=== PATIENT | female | born 1990 ===

== ENCOUNTER 2021-12-15 12:04 | Outpatient (CLI) | payer OTHER ==
[2021-12-17] MEDS ORDERED: PRENATAL TABLE1 EAC1 PO (06:51)
== END 2021-12-15 12:43 | disposition home or self-care (01) ==
LOC: NST 12:04
PROVIDERS: ATTEND Obstetrics & Gynecology Maternal & Fetal Medicine
DX: Z34.83 Encounter for supervision of other normal pregnancy, third trimester (principal)